=== PATIENT | female | born 1995 | race Two or more races ===

== ENCOUNTER 2024-12-27 16:27 | Emergency (ER) | payer BC, OTHER ==
[~2024-12-27] VITALS: Ht 160 cm; Wt 53.7 kg
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
[2024-12-27 18:15] VITALS: BP 154/103; PULSE 118; RESP 18; TEMP 99.3; O2SAT 97
[2024-12-27] MEDS ORDERED: IBU600T PO (18:22)
== END 2024-12-27 18:28 | disposition home or self-care (01) ==
LOC: ER 16:27
DX: S62.002A Unspecified fracture of navicular [scaphoid] bone of left wrist, initial encounter for closed fracture (principal); R51.9 Headache, unspecified; M25.531 Pain in right wrist; Z79.899 Other long term (current) drug therapy; V89.2XXA Person injured in unspecified motor-vehicle accident, traffic, initial encounter; Y93.89 Activity, other specified; Y92.89 Other specified places as the place of occurrence of the external cause; Y99.8 Other external cause status
CPT/HCPCS: 29125; 73110